=== PATIENT | female | born 1945 | race Caucasian/White ===

== ENCOUNTER 2021-04-13 17:17 | Emergency (ER) | payer MEDICARE ==
[~2021-04-13] VITALS: Ht 180.3 cm; Wt 57.2 kg
[~2021-04-13 17:17] MED LIST: ALBUTEROL0.63 MG/3 INH; ELLIPTA INH; LEVAQUIN500 MG PO; LOSARTAN-HCTZ1 EAC2 PO; METOPROLOL SUCC50 MG PO; NYSTATIN-TRIAMC15 G1 TOP
[2021-04-13] MEDS ORDERED: DEXAMETHASONE SOD PHOS 10 MG/1 ML VIAL IV ONE (17:45)
[2021-04-13 18:02] LABS: BASOPHILS % 0.3 % (0.0-1.0); EOSINOPHILS % 0.3 % (0.0-6.0); HEMATOCRIT 24.4 % (34.2-44.1); HEMOGLOBIN 7.8 g/dL (12.0-16.0); LYMPHOCYTES # (AUTO) 1.2 (1.0-3.2); LYMPHOCYTES % 11.8 % (18.0-39.1); MEAN CORPUSCULAR HEMOGLOBIN 33.3 pg (28-32); MEAN CORPUSCULAR VOLUME 104.3 fL (81-99); MONOCYTES # (AUTO) 0.8 (0.2-0.8); NEUTROPHILS # (AUTO) 8.2 (2.1-6.9); NEUTROPHILS % 78.3 % (38.7-80.0); PLATELET COUNT 280 x10e3/uL (140-360); RED BLOOD COUNT 2.34 x10e6/uL (3.6-5.1)
[2021-04-13 18:15] LABS: ANION GAP 18.1 mmol/L (8-16); CALCIUM 8.5 mg/dL (8.4-10.2); CREATININE, SERUM 0.82 mg/dL (0.57-1.11); POTASSIUM 3.1 mmol/L (3.5-5.1)
[2021-04-13] MEDS ORDERED: CEPHALEXIN500 MG PO (19:56)
[2021-04-13 20:13] LABS: LYMPHOCYTES % (MANUAL) 5 % (19-48); MONOCYTES % (MANUAL) 5 % (3.4-9.0); NEUTROPHILS % (MANUAL) 88 % (40-74); PLATELET ESTIMATE ADEQUATE; PLATELET MORPHOLOGY COMMENT NORMAL; RBC MORPHOLOGY COMMENT NORMAL
[2021-04-13 20:44] VITALS: BP 142/76
== END 2021-04-13 21:08 | disposition home or self-care (01) ==
LOC: ER 17:33
DX: J44.1 Chronic obstructive pulmonary disease with (acute) exacerbation (principal); Z20.822 Contact with and (suspected) exposure to COVID-19
CPT/HCPCS: 36415; 71045; 80048; 83880; 84484; 85025; 93005; 99285; J1100; U0002

== ENCOUNTER 2021-04-15 10:23 | Inpatient (IN) | payer MEDICARE ==
[~2021-04-15] VITALS: Ht 172.7 cm; Wt 56.7 kg
[~2021-04-15 10:23] MED LIST changes: +CEPHALEXIN500 MG PO
[2021-04-15] MEDS ORDERED: SODIUM CHLORIDE 0.9% 250ML 250 ML ONE ×2 (10:46→11:49)
[2021-04-15 11:17] LABS: ALBUMIN/GLOBULIN RATIO 0.8 (0.8-2.0); ANION GAP 11.2 mmol/L (8-16); CALCIUM 8.2 mg/dL (8.4-10.2); CREATININE, SERUM 0.82 mg/dL (0.57-1.11); POTASSIUM 3.2 mmol/L (3.5-5.1)
[2021-04-15] MEDS ORDERED: ONDANSETRON HCL INJ 2MG/ML 2ML 2 MG/ML VIAL IV STA (11:28)
[2021-04-15] MEDS ORDERED: ALBUTEROL/IPRATROPIUM 3 ML NEB NEB ONE (11:30)
[2021-04-15] MEDS: Pantoprazole IV 40 MG in SODIUM CHLORIDE 0.9% 50ML 50 ML IV SCH ×4 (11:52→22:32)
[2021-04-15] MEDS ORDERED: SODIUM CHLORIDE 0.9% 50ML 50 ML ONE (11:57)
[2021-04-15] MEDS ORDERED: IOPAMIDOL 370 MG/ML 200 ML INFUS..BTL INJ ONE (11:57)
[2021-04-15 11:59] LABS: BASOPHILS % 0.2 % (0.0-1.0); LYMPHOCYTES # (AUTO) 1.1 (1.0-3.2); LYMPHOCYTES % 5.1 % (18.0-39.1); MEAN CORPUSCULAR HEMOGLOBIN 33.6 pg (28-32); MEAN CORPUSCULAR HGB CONC 32.1 g/dL (31-35); MEAN CORPUSCULAR VOLUME 104.7 fL (81-99); MONOCYTES % 4.8 % (4.4-11.3); NEUTROPHILS # (AUTO) 18.9 (2.1-6.9); PLATELET COUNT 253 x10e3/uL (140-360); RED BLOOD COUNT 1.28 x10e6/uL (3.6-5.1); RED CELL DISTRIBUTION WIDTH 16.2 % (11.7-14.4)
[2021-04-15 12:01] LABS: HEMOGLOBIN 4.3 g/dL (12.0-16.0)
[2021-04-15 12:02] LABS: HEMATOCRIT 13.4 % (34.2-44.1)
[2021-04-15] MEDS ORDERED: SODIUM CHLORIDE 0.9% 250ML 250 ML IV ONE (12:15)
[2021-04-15] MEDS ORDERED: FENTANYL CITRATE/PF 100MCG/2 ML INJ IV ONE (14:00)
[2021-04-15 19:27] LABS: HEMATOCRIT 30.5 % (34.2-44.1); HEMOGLOBIN 9.7 g/dL (12.0-16.0)
[2021-04-15] MEDS ORDERED: SODIUM CHLORIDE 0.9% 1000ML 1,000 ML IV ONE (20:45)
[2021-04-15] MEDS ORDERED: SODIUM CHLORIDE 0.9% 1000ML 1,000 ML ONE (20:47)
[2021-04-15] MEDS: HYDROMORPHONE 1MG/1ML INJ IV PRN ×2 (21:09→23:59)
[2021-04-15] MEDS: ONDANSETRON HCL INJ 2MG/ML 2ML 2 MG/ML VIAL IV PRN (21:09)
[2021-04-15] MEDS ORDERED: ALBUMIN 25% 25GM 100ML 0.25 GM/ML BTL IV ONE (21:15)
[2021-04-16] MEDS: ONDANSETRON HCL INJ 2MG/ML 2ML 2 MG/ML VIAL IV PRN (02:59)
[2021-04-16] MEDS: HYDROMORPHONE 1MG/1ML INJ IV PRN ×3 (02:59→19:50)
[2021-04-16] MEDS: Pantoprazole IV 40 MG in SODIUM CHLORIDE 0.9% 50ML 50 ML IV SCH ×5 (04:11→21:45)
[2021-04-16 06:51] LABS: BASOPHILS # (AUTO) 0.1 (0.0-0.1); BASOPHILS % 0.3 % (0.0-1.0); LYMPHOCYTES # (AUTO) 1.1 (1.0-3.2); LYMPHOCYTES % 4.1 % (18.0-39.1); MEAN CORPUSCULAR HEMOGLOBIN 32.5 pg (28-32); MEAN CORPUSCULAR HGB CONC 33.5 g/dL (31-35); MEAN CORPUSCULAR VOLUME 97.1 fL (81-99); MONOCYTES % 3.9 % (4.4-11.3); NEUTROPHILS # (AUTO) 23.6 (2.1-6.9); NEUTROPHILS % 90.8 % (38.7-80.0); PLATELET COUNT 173 x10e3/uL (140-360); RED BLOOD COUNT 2.09 x10e6/uL (3.6-5.1)
[2021-04-16 07:05] LABS: HEMATOCRIT 20.3 % (34.2-44.1)
[2021-04-16 07:06] LABS: HEMOGLOBIN 6.8 g/dL (12.0-16.0)
[2021-04-16 08:09] LABS: BAND NEUTROPHILS % (MANUAL) 8 %; LYMPHOCYTES % (MANUAL) 2 % (19-48); NEUTROPHILS % (MANUAL) 90 % (40-74); PLATELET ESTIMATE ADEQUATE
[2021-04-16 08:10] LABS: PLATELET MORPHOLOGY COMMENT NORMAL; RBC MORPHOLOGY COMMENT NORMAL
[2021-04-16] MEDS ORDERED: ACETAMINOPHEN 325 MG TAB PO STA (09:19)
[2021-04-16] MEDS ORDERED: SODIUM CHLORIDE 0.9% 250ML 250 ML IV ONE (09:30)
[2021-04-16] MEDS ORDERED: DIPHENHYDRAMINE HCL INJ 50 MG/ML VIAL IV ONE (09:30)
[2021-04-16 16:11] VITALS: BP 85/53
[2021-04-16 19:58] VITALS: BP 85/53
[2021-04-16 20:00] VITALS: BP 84/50
[2021-04-17] MEDS: Pantoprazole IV 40 MG in SODIUM CHLORIDE 0.9% 50ML 50 ML IV SCH ×2 (02:45→06:51)
[2021-04-17 08:14] VITALS: BP 131/81
== END 2021-04-17 09:47 | disposition expired | DRG 378 ==
LOC: ER 10:35 → ERHOLD 14:15 → MED/SURG3 04-16 14:02
PROC: 30233N1 Transfusion of Nonautologous Red Blood Cells into Peripheral Vein, Percutaneous Approach (ICD-10-PCS; principal; 2021-04-15)
DX: K92.2 Gastrointestinal hemorrhage, unspecified (principal); E44.0 Moderate protein-calorie malnutrition; Z68.1 Body mass index [BMI] 19.9 or less, adult; R57.8 Other shock; Z66 Do not resuscitate; J44.9 Chronic obstructive pulmonary disease, unspecified; I10 Essential (primary) hypertension; Z96.642 Presence of left artificial hip joint; D50.0 Iron deficiency anemia secondary to blood loss (chronic)
CPT/HCPCS: 36415; 71045; 74177; 80048; 80053; 83605; 83690; 83880; 84484; 85014; 85018; 85025; 85379; 86850; 86900; 86920; 93005; 99285; J1100; J1170; J2405; J3010; J7030; J7050; P9016; P9047; Q9967; U0002